=== PATIENT | female | born 1965 | race Caucasian/White ===

== ENCOUNTER 2016-08-27 17:17 | Inpatient (IN) | payer OTHER, MEDICAID ==
[~2016-08-27] VITALS: Ht 180.3 cm; Wt 112.9 kg
[2016-08-27] MEDS ORDERED: HALOPERIDOL 5 MG/ML VIAL IM PRN (17:20)
[2016-08-27] MEDS ORDERED: MAG HYDROX 30 ML UDC PO PRN (17:20)
[2016-08-27] MEDS ORDERED: DIPHENHYDRAMINE 50 MG CAP PO PRN (17:20)
[2016-08-27] MEDS ORDERED: hydrOXYzine PAM 50 MG CAP PO PRN (17:20)
[2016-08-27] MEDS ORDERED: DIPHENHYDRAMINE 50 MG/ML VIAL IM PRN (17:20)
[2016-08-27] MEDS ORDERED: HALOPERIDOL 5 MG TAB PO PRN (17:20)
[2016-08-27] MEDS ORDERED: LORAZEPAM 2 MG/ML VIAL IM PRN (17:20)
[2016-08-27] MEDS ORDERED: LORAZEPAM 2 MG TAB PO PRN (17:20)
[2016-08-27] MEDS ORDERED: TRAZODONE 50 MG TAB PO PRN (17:20)
[2016-08-27] MEDS ORDERED: ALU/MAG/SIM 30 ML UDC PO PRN (17:20)
[2016-08-27 18:26] VITALS: Ht 180.3 cm; Wt 112.9 kg
[2016-08-27 18:46] VITALS: BP_SYST 141; RESP 20; TEMP 97.6
[2016-08-27] MEDS: NICOTINE 21 MG/24 HR TRANSDERM SCH (19:30)
[2016-08-27 20:48] VITALS: BP_SYST 145; RESP 18; TEMP 97.8
[2016-08-27] MEDS: Ziprasidone 20 MG CAP PO SCH (21:55)
[2016-08-27] MEDS: lamoTRIgine 100 MG TAB PO SCH (21:56)
[2016-08-27] MEDS: Atorvastatin 10 MG TAB PO SCH (21:56)
[2016-08-27] MEDS: clonazePAM 0.5 MG TAB PO SCH (21:56)
[2016-08-27] MEDS: CHOLESTYRAMINE 4 GM PKT PO SCH (22:30)
[2016-08-28] MEDS: ACETAMINOPHEN 325 MG TAB PO PRN ×3 (05:35→23:50)
[2016-08-28] MEDS: PANTOPRAZOLE 40 MG TAB PO SCH (06:10)
[2016-08-28 08:21] VITALS: BP_SYST 145; RESP 20; TEMP 97.2
[2016-08-28] MEDS: NICOTINE 21 MG/24 HR TRANSDERM SCH (09:00)
[2016-08-28] MEDS: Ziprasidone 20 MG CAP PO SCH ×2 (09:29→21:00)
[2016-08-28] MEDS: lamoTRIgine 100 MG TAB PO SCH ×2 (09:30→21:00)
[2016-08-28] MEDS: MULTIVITS/MINERALS (THERAGRAN M) TAB PO SCH (09:30)
[2016-08-28 19:03] VITALS: BP_SYST 139; RESP 20; TEMP 97.7
[2016-08-28] MEDS: clonazePAM 0.5 MG TAB PO SCH (21:00)
[2016-08-28] MEDS: Atorvastatin 10 MG TAB PO SCH (21:00)
[2016-08-28] MEDS: CHOLESTYRAMINE 4 GM PKT PO SCH (23:50)
[2016-08-29] MEDS: ACETAMINOPHEN 325 MG TAB PO PRN ×2 (04:27→13:53)
[2016-08-29] MEDS: PANTOPRAZOLE 40 MG TAB PO SCH (07:27)
[2016-08-29 08:26] VITALS: BP_SYST 149; RESP 20; TEMP 97.5
[2016-08-29] MEDS: NICOTINE 21 MG/24 HR TRANSDERM SCH (08:45)
[2016-08-29] MEDS: MULTIVITS/MINERALS (THERAGRAN M) TAB PO SCH (09:16)
[2016-08-29] MEDS: Ziprasidone 20 MG CAP PO SCH ×2 (09:16→21:03)
[2016-08-29] MEDS: LITHIUM 450 MG PO SCH ×2 (12:18→21:03)
[2016-08-29] MEDS: Furosemide 20 MG TAB PO SCH (15:10)
[2016-08-29 15:19] VITALS: TEMP 97.4
[2016-08-29 20:00] VITALS: BP_SYST 136; RESP 18; TEMP 97.8
[2016-08-29] MEDS: Atorvastatin 10 MG TAB PO SCH (21:03)
[2016-08-29] MEDS: CHOLESTYRAMINE 4 GM PKT PO SCH (21:03)
[2016-08-29] MEDS: clonazePAM 0.5 MG TAB PO SCH (21:03)
[2016-08-29] MEDS: lamoTRIgine 100 MG TAB PO SCH (21:03)
[2016-08-30] MEDS: ACETAMINOPHEN 325 MG TAB PO PRN ×2 (02:51→22:37)
[2016-08-30] MEDS: PANTOPRAZOLE 40 MG TAB PO SCH (06:21)
[2016-08-30 07:27] VITALS: BP_SYST 132; RESP 18; TEMP 98.5
[2016-08-30] MEDS: Ziprasidone 20 MG CAP PO SCH ×2 (09:00→21:00)
[2016-08-30] MEDS: LITHIUM 450 MG PO SCH ×2 (09:00→21:00)
[2016-08-30] MEDS: MULTIVITS/MINERALS (THERAGRAN M) TAB PO SCH (09:00)
[2016-08-30] MEDS: NICOTINE 21 MG/24 HR TRANSDERM SCH (09:00)
[2016-08-30] MEDS: Furosemide 20 MG TAB PO SCH (09:00)
[2016-08-30 19:05] VITALS: BP_SYST 149; RESP 22; TEMP 97.7
[2016-08-30] MEDS: Atorvastatin 10 MG TAB PO SCH (21:00)
[2016-08-30] MEDS: clonazePAM 0.5 MG TAB PO SCH (21:00)
[2016-08-30] MEDS: lamoTRIgine 100 MG TAB PO SCH (21:00)
[2016-08-30] MEDS: CHOLESTYRAMINE 4 GM PKT PO SCH (22:03)
[2016-08-31] MEDS: ACETAMINOPHEN 325 MG TAB PO PRN ×2 (05:32→22:47)
[2016-08-31] MEDS: PANTOPRAZOLE 40 MG TAB PO SCH (06:19)
[2016-08-31 07:09] VITALS: BP_SYST 131; RESP 18; TEMP 97.9
[2016-08-31] MEDS: NICOTINE 21 MG/24 HR TRANSDERM SCH (08:52)
[2016-08-31] MEDS: MULTIVITS/MINERALS (THERAGRAN M) TAB PO SCH (09:02)
[2016-08-31] MEDS: Ziprasidone 20 MG CAP PO SCH ×2 (09:02→20:54)
[2016-08-31] MEDS: LITHIUM 450 MG PO SCH (09:02)
[2016-08-31] MEDS ORDERED: LOPERAMIDE 2 MG CAPSULE PO PRN (14:35)
[2016-08-31 19:01] VITALS: BP_SYST 155; RESP 18; TEMP 97.6
[2016-08-31] MEDS: lamoTRIgine 100 MG TAB PO SCH (20:54)
[2016-08-31] MEDS: Atorvastatin 10 MG TAB PO SCH (20:54)
[2016-08-31] MEDS: LITHIUM 300 MG PO SCH (20:55)
[2016-08-31] MEDS ORDERED: LITHIUM 300 MG PO SCH (21:00)
[2016-08-31] MEDS: clonazePAM 0.5 MG TAB PO SCH (21:01)
[2016-08-31] MEDS: CHOLESTYRAMINE 4 GM PKT PO SCH (22:00)
[2016-09-01] MEDS: ACETAMINOPHEN 325 MG TAB PO PRN ×3 (03:30→20:54)
[2016-09-01] MEDS: PANTOPRAZOLE 40 MG TAB PO SCH (06:20)
[2016-09-01 07:14] VITALS: BP_SYST 135; RESP 18
[2016-09-01] MEDS: NICOTINE 21 MG/24 HR TRANSDERM SCH (08:47)
[2016-09-01] MEDS: MULTIVITS/MINERALS (THERAGRAN M) TAB PO SCH (08:47)
[2016-09-01] MEDS: LITHIUM 300 MG PO SCH ×2 (08:47→21:47)
[2016-09-01] MEDS: Ziprasidone 20 MG CAP PO SCH ×2 (08:47→21:46)
[2016-09-01] MEDS ORDERED: LITHIUM 300 MG PO SCH (09:00)
[2016-09-01 18:53] VITALS: BP_SYST 118; RESP 18; TEMP 97.6
[2016-09-01] MEDS ORDERED: clonazePAM 0.5 MG TAB PO SCH (21:00)
[2016-09-01] MEDS: lamoTRIgine 100 MG TAB PO SCH (21:47)
[2016-09-01] MEDS: Atorvastatin 10 MG TAB PO SCH (21:47)
[2016-09-01] MEDS: CHOLESTYRAMINE 4 GM PKT PO SCH (22:59)
[2016-09-02] MEDS: ACETAMINOPHEN 325 MG TAB PO PRN ×2 (02:02→22:02)
[2016-09-02] MEDS: PANTOPRAZOLE 40 MG TAB PO SCH (06:20)
[2016-09-02 07:36] VITALS: BP_SYST 148; RESP 18
[2016-09-02] MEDS: NICOTINE 21 MG/24 HR TRANSDERM SCH (09:00)
[2016-09-02] MEDS: Ziprasidone 20 MG CAP PO SCH ×2 (09:19→21:36)
[2016-09-02] MEDS: MULTIVITS/MINERALS (THERAGRAN M) TAB PO SCH (09:20)
[2016-09-02] MEDS: LITHIUM 300 MG PO SCH ×2 (09:41→21:37)
[2016-09-02 19:00] VITALS: BP_SYST 126; RESP 20; TEMP 97.4
[2016-09-02] MEDS ORDERED: TEMAZEPAM 15 MG CAP PO SCH (21:00)
[2016-09-02] MEDS: lamoTRIgine 100 MG TAB PO SCH (21:36)
[2016-09-02] MEDS: Atorvastatin 10 MG TAB PO SCH (21:36)
[2016-09-02] MEDS: CHOLESTYRAMINE 4 GM PKT PO SCH (22:40)
[2016-09-03] MEDS: PANTOPRAZOLE 40 MG TAB PO SCH (07:10)
[2016-09-03] MEDS: Ziprasidone 20 MG CAP PO SCH (08:50)
[2016-09-03] MEDS: LITHIUM 300 MG PO SCH (08:50)
[2016-09-03] MEDS: MULTIVITS/MINERALS (THERAGRAN M) TAB PO SCH (08:50)
[2016-09-03] MEDS: NICOTINE 21 MG/24 HR TRANSDERM SCH (08:50)
[2016-09-03 08:51] VITALS: BP_SYST 130; RESP 18; TEMP 97.7
[2016-09-03 09:34] VITALS: BP_SYST 130; RESP 18; TEMP 97.7
[2016-09-03] MEDS: ACETAMINOPHEN 325 MG TAB PO PRN (10:43)
[2016-09-03 11:31] VITALS: BP_SYST 130; RESP 18; TEMP 97.7
[2016-09-03 12:02] VITALS: BP_SYST 130; RESP 18; TEMP 97.7
[2016-09-03 12:31] VITALS: BP_SYST 130; RESP 18; TEMP 97.7
== END 2016-09-03 14:10 | DRG 885 ==
LOC: PSY 18:13
PROVIDERS: ADMIT Psychiatry & Neurology Psychiatry; ATTEND Psychiatry & Neurology Psychiatry
CPT/HCPCS: 71020; 80048; 80178; 83880; 93005; 93970